=== PATIENT | male | born 1975 | race Caucasian/White ===

== ENCOUNTER 2025-03-07 20:21 | Emergency (ER) | payer OTHER, SELFPAY ==
[2025-03-07 20:24] VITALS: BP 182/106
[2025-03-07 20:44] LABS: % Basophils 0.4 % (0-2); % Eosinophils 0.9 % (0-6); % Immature Granulocytes 0.4 % (0-0.5); % Lymphocytes 21.9 % (20.5-51.1); % Monocytes 5.5 % (1.7-9.3); % Neutrophils 70.9 % (42.2-75.2); Absolute Eosinophils 0.1 10^3/uL (0-0.7); Absolute Lymphocytes 1.6 10^3/uL (1.2-3.4); Absolute Monocytes 0.4 10^3/uL (0.1-0.6); Absolute Neutrophils 5.3 10^3/uL (1.4-6.5); Hematocrit 44.9 % (39.0-52.0); Hemoglobin 15.6 g/dL (13.0-18.0); Mean Corp Hgb Conc. 34.7 g/dL (33.0-37.0); Mean Corpuscular Volume 89.1 fL (80.0-94.0); Mean Platelet Volume 8.7 fL (7.4-10.4); Nucleated Red Blood Cells % 0 % (-); Platelet Count 279 10^3/uL (130-400); Red Blood Cell Count 5.04 10^6/uL (4.70-6.10); Red Cell Dist. Width 12.6 % (11.5-14.5); White Blood Cell Count 7.4 10^3/uL (4.8-10.8)
[2025-03-07 20:59] LABS: ALT (SGPT) 29 U/L (0-50); AST (SGOT) 28 U/L (17-59); Albumin 4.4 g/dl (3.5-5.0); Alkaline Phosphatase 72 U/L (38-126); Blood Urea Nitrogen 14 mg/dl (9-20); Calcium 9.2 mg/dl (8.4-10.2); Carbon Dioxide 24 mmol/L (22-30); Chloride 108 mmol/L (98-107); Glucose 109 mg/dl (70-99); Sodium 140 mmol/L (135-145); Total Bilirubin 0.7 mg/dl (0.2-1.3); Total Protein 7.2 g/dl (6.3-8.2); eGFR > 60.00
[2025-03-07 21:11] LABS: Troponin I < 0.012 ng/ml
[2025-03-07 22:39] VITALS: BP 143/103
[2025-03-07 23:20] VITALS: BP 141/95
--- NOTE | 2025-03-08 00:34 | ED.GENMED ---
History of Present Illness
General
Chief Complaint: Blood Pressure Problem
Source: patient
Exam Limitations: none
Time Seen by Provider: 03/07/25 23:42
Nursing documentation reviewed up to this point in time: agreed with
History of Present Illness
History of Present Illness:
This is a 49-year-old male with a past medical history of Lyme disease, skin cancer, who presents emergency department today with concerns of high blood pressure. He reports that he is scheduled to have surgery to have skin cancer removed from his
back and when he was getting his preop vital signs checked, they noticed his blood pressure was 182/106 and he was sent to the emergency department. Patient reports that he does not take any medication for his blood pressure but will periodically
check his blood pressure at [facility] and states that it has been higher the past few times he checked. Patient reports that when his blood pressure gets higher, he does get some headaches but the headaches will usually resolve when his blood
pressure comes down spontaneously. Currently, he has a mild headache but states that it was more severe earlier when this blood pressure was higher. He currently denies any visual changes, blurry vision, double vision, visual loss, chest pain,
shortness of breath, weakness in one-sided body versus other, paresthesias.
Past History
Past History
ED Past Medical History: None
ED Past Surgical History: Orthopedic
Social History
Alcohol: None
Personal:
Review of Systems
Review of Systems
All Other Systems: ROS reviewed and negative except as documented in HPI and ROS
Phy Exam
Physical Exam
Physical Exam:
General: Patient is well appearing and in no acute distress; non-toxic
Skin: Warm and dry, no rashes or lesions
Head: Normocephalic, atraumatic
Eyes: Sclera non-icteric. EOMs intact.
Cardiac: Regular rate and rhythm, no murmur
Pulm: Normal respiratory effort, no wheezes, rales, rhonchi
Abdomen: No abdominal tenderness to palpation
Neuro: CN II-XII intact, no focal neurologic deficits. 5 out of 5 strength bilateral upper and lower extremities. Sensation intact.
Psychiatric: Appropriate mood and affect.
Course
Orders/Labs/Results
Orders:
Orders
03/07/25 20:27
Electrocardiogram (*1) Urgent
Reason for Study: Chest Pain
EKG- Treatment ONCE
03/07/25 20:37
Complete Blood Count/With Diff Urgent
Comprehensive Metabolic Panel Urgent
Troponin I Urgent
Abnormal Lab Results
03/07/25
20:37
Chloride 108 H mmol/L
(98-107)
Glucose 109 H mg/dl
(70-99)
03/07/25 20:37
03/07/25 20:37
Vital Signs
Initial and Last Documented VS:
Initial Vital Signs
Temp Pulse Resp BP Pulse Ox
98.6 F 94 16 182/106 100
03/07/25 20:24 03/07/25 20:24 03/07/25 20:24 03/07/25 20:24 03/07/25 20:24
Last Documented Vital Signs
Temp Pulse Resp BP Pulse Ox
98.6 F 94 16 141/95 100
03/07/25 20:24 03/07/25 20:24 03/07/25 20:24 03/07/25 23:20 03/07/25 20:24
MDM/Problems Addressed
Differential Diagnosis Includes:
ddx include essential hypertension, tension headache, ACS,
MDM/Problems Addressed:
This is a 49-year-old male with a past medical history of Lyme disease, skin cancer, who presents emergency department today with concerns of high blood pressure. He does have a headache earlier which seemed to resolve when his blood pressure came
down spontaneously. Currently his blood pressure is 141/95. He has no complaints at this time. He is chest pain free. His troponin is undetectable and his ecg is non-ischemic. His cmp shows normal kidney function. Patient does have a mild headache
and he states that he has been getting headaches frequently recently as well as been getting daily headaches. Did offer CAT scan for further evaluation but patient is refusing at this time and states that he would rather just follow-up with his
primary care provider as outpatient. Patient states he currently does not have a PCP but is currently in the process of establishing an appointment. I think this is reasonable considering patient has nonfocal neuroexam and with his symptoms have
resolved. Considering patient's blood pressure has been high recently, will initiate amlodipine. Discussed keeping a blood pressure log at home. Return precautions. Patient stable for discharge.
*Pulse Oximetry
Patient hypoxic: no
*EKG
Interpreted by ED Provider?: Yes
EKG Intrepretation Date: 03/08/25
Interpretation: normal
Comparison EKG: no changes
Heart Rate: 77
Rate: normal
Rhythm: sinus
[place]: normal axis
*Critical Care Note
Total Time (30-74mins, 75-104mins- exclusive of procedures): Not Applicable
ED Attending Note
-
Portions of this chart may have been created with voice recognition software.� Occasional wrong word or��sound alike� substitutions may have occurred due to the inherent limitations of voice recognition software.
Discharge Plan
Departure
Patient Disposition: Home (Routine Discharge)
Date of Disposition: 03/08/25
Time of Disposition: 00:24
Patient with high blood pressure during this ER visit?: Yes
Condition: Good
Discharge Problem:
Hypertension, Acute tension headache
Instructions: High Blood Pressure (DC), BLOOD PRESSURE
Prescriptions:
New
amlodipine 5 mg tablet
5 mg PO DAILY Qty: 30 0RF
No Action
moxifloxacin [Vigamox] 0.5 % drops
1 drp OPHTHALMIC QID Qty: 1 0RF
erythromycin 1 APPLIC ointment
1 applic OPHTHALMIC QID Qty: 1 0RF
oxycodone-acetaminophen 5 MG/325 MG tablet
1 tab PO Q4HPRN PRN (Reason: pain) Qty: 7 0RF
Referrals:
Joanie Courtney DO [Family Provider] -
Activity Restrictions/Additional Instructions:
Amlodipine has been sent to your pharmacy. Please take 1 tablet once daily.
Please call the office tomorrow to establish care with primary care physician.
You have been given copy of EKG and blood work for your surgery.
PLEASE RETURN EMERGENCY DEPARTMENT SHOULD YOU DEVELOP PERSISTENT HEADACHE, DOUBLE VISION, BLURRY VISION, NECK PAIN, INTRACTABLE NAUSEA OR VOMITING, CHEST PAIN, SHORTNESS OF BREATH, OR ANY OTHER SIGNS OR SYMPTOMS WORRISOME TO YOU.
Interventions
Interventions:
*Risk Screen - Suicide Last Done: 03/07/25 20:24
*General Assessment Last Done: 03/07/25 22:39
*Neglect/Abuse Screening Last Done: 03/07/25 20:24
*ED- Fall Risk Assessment Last Done: 03/07/25 22:39
*ED COVID-19 Vaccine History Last Done: 03/08/25 00:19
*Nursing Disposition Last Done: 03/08/25 00:29
ED- Neurological Assessment Last Done: 03/07/25 22:40
Discharge Date and Time
Discharge Date/Time: 03/08/25 00:29
Print Language: SAMO[place]
== END 2025-03-08 00:29 | disposition home or self-care (01) ==
LOC: EMR 20:21
PROVIDERS: EMERGENCY PHYSICIAN Student in an Organized Health Care Education/Training Program; FAMILY PHYSICIAN Internal Medicine
DX: I10 Essential (primary) hypertension (principal); G44.209 Tension-type headache, unspecified, not intractable; Z85.828 Personal history of other malignant neoplasm of skin; Z86.19 Personal history of other infectious and parasitic diseases
CPT/HCPCS: 99283; 80053; 84484; 85025; 93005

== ENCOUNTER 2025-03-09 15:17 | Emergency (ER) | payer OTHER, SELFPAY ==
[2025-03-09 15:20] VITALS: BP 86/66
[2025-03-09 15:41] VITALS: BP 103/63
--- NOTE | 2025-03-09 15:45 | ED.GENMED ---
History of Present Illness
General
Chief Complaint: Fainting/Passed Out
Source: patient
Exam Limitations: none
Time Seen by Provider: 03/09/25 15:38
History of Present Illness
History of Present Illness:
49-year-old male presents complaining of right knee discomfort. He states he initially injured it last evening and felt like it popped out of place. He was getting up into his truck and he fell like it popped out of place again today. He passed
out because of the pain. No chest pain or shortness of breath. The pain is along the lateral aspect of the knee. No other complaints at this time
Past History
Past History
ED Past Medical History: None
ED Past Surgical History: Orthopedic
Social History
Alcohol: None
Personal:
Phy Exam
Physical Exam
Physical Exam:
General: Well-appearing male anxious no acute respiratory distress
HEENT: Normocephalic atraumatic
Musculoskeletal exam: Right knee without deformity. He is tender laterally. The posterior joint line is slightly tender. He is almost able to get his leg straight.
Skin is intact
Course
Orders/Labs/Results
Orders:
Orders
03/09/25 15:22
Electrocardiogram (*1) Urgent
Reason for Study: Syncope
Knee, Right 4 or More Views [CR Knee- Right 4 Or More View*] Urgent
Comment:
Reason For Exam: pain
03/09/25 15:23
EKG- Treatment ONCE
03/09/25 15:45
diazePAM [Valium Injection] 5 mg IV NOW STA
03/09/25 16:09
Complete Blood Count/With Diff Urgent
Comprehensive Metabolic Panel Urgent
Troponin I Urgent
03/09/25 16:14
Ketorolac [Toradol] 15 mg IV NOW STA
03/09/25 18:06
Knee Immobilizer Right-Treatme ONCE
Abnormal Lab Results
03/09/25
16:09
MCH 31.6 H pg
(27.0-31.0)
Chloride 115 H mmol/L
(98-107)
Carbon Dioxide 21 L mmol/L
(22-30)
Calcium 8.0 L mg/dl
(8.4-10.2)
Total Protein 6.1 L g/dl
(6.3-8.2)
03/09/25 16:09
03/09/25 16:09
Vital Signs
Initial and Last Documented VS:
Initial Vital Signs
Temp Pulse Resp BP Pulse Ox
98 F 76 16 86/66 100
03/09/25 15:20 03/09/25 15:20 03/09/25 15:20 03/09/25 15:20 03/09/25 15:20
Last Documented Vital Signs
Temp Pulse Resp BP Pulse Ox
98 F 76 16 86/66 100
03/09/25 15:20 03/09/25 15:20 03/09/25 15:20 03/09/25 15:20 03/09/25 15:20
MDM/Problems Addressed
Differential Diagnosis Includes:
Right knee discomfort. Patient thought maybe he dislocated his knee. Clinically there is no deformity no obvious dislocation. X-rays pending. Suspect possible knee sprain. Patient is quite anxious about the situation. He has fluids running
through triage as his blood pressure was low at triage. He is likely having a vasovagal episode secondary to the pain he is in
*Critical Care Note
Total Time (30-74mins, 75-104mins- exclusive of procedures): Not Applicable
Update Note
Update Note:
X-ray right knee negative for acute bony abnormality. There is no fracture or dislocation. Suspect internal injury perhaps meniscus. Will attempt to place patient in knee immobilizer and given crutches for support. Cardiac workup was ordered
through triage and reviewed and is negative. I suspect vasovagal episode secondary to the knee pain
ED Attending Note
-
Portions of this chart may have been created with voice recognition software.� Occasional wrong word or��sound alike� substitutions may have occurred due to the inherent limitations of voice recognition software.
Discharge Plan
Departure
Patient Disposition: Home (Routine Discharge)
Date of Disposition: 03/09/25
Time of Disposition: 18:24
Patient with high blood pressure during this ER visit?: No
Discharge Problem:
Knee sprain
Instructions: Knee sprain
Prescriptions:
No Action
moxifloxacin [Vigamox] 0.5 % drops
1 drp OPHTHALMIC QID Qty: 1 0RF
erythromycin 1 APPLIC ointment
1 applic OPHTHALMIC QID Qty: 1 0RF
oxycodone-acetaminophen 5 MG/325 MG tablet
1 tab PO Q4HPRN PRN (Reason: pain) Qty: 7 0RF
amlodipine 5 mg tablet
5 mg PO DAILY Qty: 30 0RF
Referrals:
Reji Black MD [Active] -
NONE,* [Family Provider] -
Activity Restrictions/Additional Instructions:
Use brace for support when ambulating. Use crutches if needed. Continue with Tylenol or ibuprofen for pain. Follow-up with orthopedics for further evaluation
Interventions
Interventions:
*Risk Screen - Suicide Last Done: 03/09/25 15:20
*Neglect/Abuse Screening Last Done: 03/09/25 15:20
*ED- Fall Risk Assessment Last Done: 03/09/25 15:20
Discharge Date and Time
Print Language: [place]
[2025-03-09] MEDS: VALIUM INJECTION 5 MG IV (16:07)
[2025-03-09 16:08] VITALS: BMI 30.5
[2025-03-09] MEDS: TORADOL 15 MG IV (16:24)
[2025-03-09 16:29] LABS: % Basophils 0.8 % (0-2); % Eosinophils 1.6 % (0-6); % Immature Granulocytes 0.5 % (0-0.5); % Lymphocytes 23.6 % (20.5-51.1); % Monocytes 6.9 % (1.7-9.3); % Neutrophils 66.6 % (42.2-75.2); Absolute Lymphocytes 1.4 10^3/uL (1.2-3.4); Absolute Monocytes 0.4 10^3/uL (0.1-0.6); Absolute Neutrophils 4.1 10^3/uL (1.4-6.5); Hemoglobin 15.1 g/dL (13.0-18.0); Mean Corp Hgb Conc. 35.1 g/dL (33.0-37.0); Mean Corpuscular Hgb 31.6 pg (27.0-31.0); Mean Platelet Volume 8.9 fL (7.4-10.4); Platelet Count 280 10^3/uL (130-400); Red Blood Cell Count 4.78 10^6/uL (4.70-6.10); Red Cell Dist. Width 12.5 % (11.5-14.5); White Blood Cell Count 6.1 10^3/uL (4.8-10.8)
[2025-03-09 16:30] LABS: Absolute Basophils 0.1 10^3/uL (0-0.2); Absolute Eosinophils 0.1 10^3/uL (0-0.7); Nucleated Red Blood Cells % 0 % (-)
[2025-03-09 16:42] LABS: ALT (SGPT) 25 U/L (0-50); AST (SGOT) 23 U/L (17-59); Albumin 3.5 g/dl (3.5-5.0); Alkaline Phosphatase 59 U/L (38-126); Blood Urea Nitrogen 19 mg/dl (9-20); Carbon Dioxide 21 mmol/L (22-30); Chloride 115 mmol/L (98-107); Estimated Creatinine Clearance 99 ml/min; Glucose 87 mg/dl (70-99); Potassium 3.7 mmol/L (3.5-5.1); Sodium 141 mmol/L (135-145); Total Bilirubin 0.5 mg/dl (0.2-1.3); Total Protein 6.1 g/dl (6.3-8.2); eGFR > 60.00
[2025-03-09 16:52] LABS: Troponin I < 0.012 ng/ml
[2025-03-09 18:04] VITALS: BP 104/71
[2025-03-09 18:55] VITALS: BP 130/82
[2025-03-09 19:00] VITALS: BP 130/82
== END 2025-03-09 19:00 | disposition home or self-care (01) ==
LOC: EMR 15:17
PROVIDERS: EMERGENCY PHYSICIAN Student in an Organized Health Care Education/Training Program
DX: R55 Syncope and collapse (principal); S83.91XA Sprain of unspecified site of right knee, initial encounter; X58.XXXA Exposure to other specified factors, initial encounter
CPT/HCPCS: 99284; 96374; 29505; 96375; 73564; 80053; 84484; 85025; 93005